=== PATIENT | male | born 1970 | race Caucasian/White ===

== ENCOUNTER → 2016-10-04 | Outpatient (CLI) | payer BC, OTHER ==
[2016-10-04 13:23] LABS: ESTIMATED AVERAGE GLUCOSE 148 mg/dl; HA1C FLAG Normal (Normal)
[2016-10-04 13:46] LABS: ALT/SGPT 33 U/L (12-78); AST/SGOT 19 U/L (15-37); BLOOD UREA NITROGEN 19 mg/dl (7-18); BUN/CREATININE RATIO 20.2 (10-20); CALCIUM 9.8 mg/dl (8.5-10.1); CARBON DIOXIDE 28 mmol/L (21-32); CHLORIDE 105 mmol/L (98-107); CREATININE 0.96 mg/dl (0.60-1.40); GLUCOSE 95 mg/dl (70-99); POTASSIUM 4.1 mmol/L (3.5-5.1); SODIUM 139 mmol/L (136-145)
[2016-10-04 13:48] LABS: ALB/GLOB RATIO 1.2 (0.9-2); ALKALINE PHOSPHATASE 77 U/L (45-117); CHOLESTEROL 126 mg/dl (0-200); CHOLESTEROL/HDL RATIO 2.9; HDL CHOLESTEROL 43 mg/dl; LDL CHOLESTEROL CALCULATED 59 mg/dl; TRIGLYCERIDES 118 mg/dl (0-150); VERY LOW DENSITY LIPOPROT CALC 24 mg/dl
== END | disposition home or self-care (01) ==
LOC: C.LABMFLN 07:09
PROVIDERS: ATTEND Family Medicine
DX: E11.9 Type 2 diabetes mellitus without complications (principal); E78.5 Hyperlipidemia, unspecified

== ENCOUNTER → 2017-02-19 | Outpatient (CLI) | payer BC, OTHER ==
[2017-02-19 12:57] LABS: BASO % 2.3 %; COMPLETE YES; EOS % 12.6 %; IG% 0.7 %; LYMPH % 22.6 %; MEAN CELL VOLUME 86.8 fL (80-100); MEAN CORPUSCULAR HGB CONC 34.6 g/dl (32-36); MEAN PLATELET VOLUME 10.3 fL (7.4-10.4); MONO % 9.3 %; NEUT % 52.5 %; PLATELET COUNT 207 K/uL (130-400); RED BLOOD COUNT 5.53 M/uL (4.7-6.1); WHITE BLOOD COUNT 4.43 K/uL (4.8-10.8)
[2017-02-19 13:32] LABS: RATIO 5.6 mcg/mg (0-30.0)
[2017-02-19 13:34] LABS: ALT/SGPT 39 U/L (12-78); AST/SGOT 23 U/L (15-37); BLOOD UREA NITROGEN 20 mg/dl (7-18); CALCIUM 9.6 mg/dl (8.5-10.1); CARBON DIOXIDE 28 mmol/L (21-32); CHLORIDE 101 mmol/L (98-107); CHOLESTEROL 86 mg/dl (0-200); CREATININE 1.07 mg/dl (0.60-1.40); GLUCOSE 99 mg/dl (70-99); SODIUM 135 mmol/L (136-145); TRIGLYCERIDES 86 mg/dl (0-150); VERY LOW DENSITY LIPOPROT CALC 17 mg/dl
[2017-02-19 13:35] LABS: ESTIMATED AVERAGE GLUCOSE 154 mg/dl; HA1C FLAG Normal (Normal)
[2017-02-19 13:46] LABS: ALB/GLOB RATIO 1.1 (0.9-2); ALKALINE PHOSPHATASE 84 U/L (45-117); CHOLESTEROL/HDL RATIO 2.2; HDL CHOLESTEROL 40 mg/dl; LDL CHOLESTEROL CALCULATED 29 mg/dl
== END | disposition home or self-care (01) ==
LOC: C.LABMFLN 07:44
PROVIDERS: ATTEND Family Medicine
DX: E11.9 Type 2 diabetes mellitus without complications (principal); E78.5 Hyperlipidemia, unspecified; C81.90 Hodgkin lymphoma, unspecified, unspecified site

== ENCOUNTER → 2017-03-16 | Outpatient (CLI) | payer BC, OTHER | END | disposition home or self-care (01) | LOC: C.LABMFLN 10:12 | PROVIDERS: ATTEND Physician Assistant | DX: J02.9 Acute pharyngitis, unspecified (principal) ==

== ENCOUNTER → 2017-09-26 | Outpatient (CLI) | payer BC, OTHER ==
[2017-09-26 13:24] LABS: HEMOGLOBIN A1C 7.6 % (4.5-5.6)
[2017-09-26 13:41] LABS: ALBUMIN 4.1 gm/dl (3.4-5.0); ALKALINE PHOSPHATASE 78 U/L (45-117); ALT/SGPT 31 U/L (12-78); AST/SGOT 21 U/L (15-37); BLOOD UREA NITROGEN 14 mg/dl (7-18); CALCIUM 9.5 mg/dl (8.5-10.1); CARBON DIOXIDE 28 mmol/L (21-32); CHOLESTEROL 88 mg/dl (0-200); CREATININE 1.01 mg/dl (0.60-1.40); GLUCOSE 117 mg/dl (70-99); LDL CHOLESTEROL CALCULATED 32 mg/dl; SODIUM 137 mmol/L (136-145); TOTAL PROTEIN 7.7 gm/dl (6.4-8.2)
== END | disposition home or self-care (01) ==
LOC: C.LABMFLN 08:31
PROVIDERS: ATTEND Family Medicine
DX: E11.9 Type 2 diabetes mellitus without complications (principal); E78.5 Hyperlipidemia, unspecified

== ENCOUNTER 2021-01-04 19:19 | Observation (INO) ==
[2021-01-04] MEDS ORDERED: SODIUM CHLORIDE 0.9% 1000ML 1,000 ML IV ONE (19:56)
[2021-01-04 20:18] LABS: Basophils # (auto) 0.02 K/uL (0-0.2); Basophils % (auto) 0.2 %; Eosinophils # (auto) 0.13 K/uL (0-0.5); Hematocrit (blood only) 42.8 % (42-52); Hemoglobin 14.8 g/dL (14.0-18.0); Immature Granulocytes # (auto) 0.03 K/uL (0.00-0.02); Immature Granulocytes % (auto) 0.2 %; Lymphocytes # (auto) 0.73 K/uL (1.2-3.4); Lymphocytes % (auto) 5.7 %; Mean Corpuscular Hgb Conc 34.6 g/dL (32-36); Mean Corpuscular Volume 86.8 fL (80-100); Mean Platelet Volume 10.5 fL (7.4-10.4); Monocytes # (auto) 1.13 K/uL (0.11-0.59); Monocytes % (auto) 8.8 %; Neutrophils # (auto) 10.83 K/uL (1.4-6.5); Neutrophils % (auto) 84.1 %; Platelet Count 252 K/uL (130-400); RDW Coefficient of Variation 13.7 % (11.5-14.5); RDW Standard Deviation 43.9 fL (36.4-46.3); Red Blood Count 4.93 M/uL (4.7-6.1); White Blood Count 12.87 K/uL (4.8-10.8)
--- NOTE | 2021-01-04 20:21 | Emergency Department Note ---
Impression & Plan Cholecystitis, D-dimer, elevated, Total bilirubin, elevated ED Provider Note Provider: Jeff Echeverria MD DATE OF SERVICE: 01/04/2021 CHIEF COMPLAINT: Upper abdominal pain, abnormal labs HISTORY OF PRESENT ILLNESS: Patient is a 50-year-old gentleman history of diabetes & hyperlipidemia presenting here today referred by his primary doctor after abnormal blood work. Patient was evidently having significant vomiting and upper abdominal discomfort in the upper abdomen seen here [address] scan that questioned a little bit of colon ?inflammation and was started on Augmentin at that time. States he has not had significant lower abdominal pain but still having some fevers and chills at times with localization of pain to the right upper quadrant. Patient states yesterday he developed some pain with deep breath particularly in the right upper quadrant and right chest wall area and saw his doctor today. Blood work was ordered. Blood work was concerning with an elevated D-dimer as well as a white blood cell count and bilirubin elevation. Was sent here for reevaluation. Patient has been taking some [place] but last early this morning and some Tylenol this evening. Patient states that he is not been eating much today but the vomiting is minimal at this time with some mild discomfort particular with touch to the right upper quadrant. Pain does state that the pain will localize more in the right upper abdomen now more than it was a day or 2 ago. REVIEW OF SYSTEMS: A total of 10 review of systems was obtained and negative except as stated above in the HPI. PAST MEDICAL HISTORY: As noted above MEDICATIONS: Reviewed home medications and currently includes Augmentin SOCIAL HISTORY: Lives at home with PHYSICAL EXAM: GENERAL: alert and oriented in no acute distress on stretcher Head: normocephalic and atraumatic EYES: No injection, discharge or icterus. NECK: Trachea midline. ENT: Mucous membranes pink and moist. LUNGS: Airway patent. No retractions. Breath sounds clear HEART: Regular rate and rhythm. No chest wall tenderness ABDOMEN: Soft with no lower abdominal tenderness or peritonitis. Right upper quadrant tenderness with a positive Ladd sign. SKIN: Acyanotic, warm, dry, without rashes EXTREMITIES: Without swelling, tenderness or deformity NEUROLOGICAL: No focal deficits. No aphasia. No facial droop or slurred speech. Ambulatory. EK bpm sinus tachycardia with left axis. No acute ST segment elevation or depression. QTC 461. CONTINUOUS CARDIAC MONITORING: was ordered and showed a heart rate of 90s to 100 bpm in normal sinus rhythm to sinus tachycardia Patient's laboratory studies and imaging reviewed. Differential includes PE, ACS, appendicitis, testicular torsion, infections, diverticulitis, UTI, obstruction, mesenteric ischemia, aortic pathology, inflammatory bowel disease, renal colic, PUD, pancreatitis, biliary pathology, hernia, volvulus, constipation, as well as other pathologies. IMPRESSION/MEDICAL DECISION MAKING: Patient now with leukocytosis continued fevers and an elevated D-dimer. Not that short of breath at rest no chest pain lower suspicion for ACS or PE but with abdominal complete a CT of the chest to exclude this. With the low white blood cell count pain in the right upper quadrant with appears to be a Ladd sign as well as an elevated bilirubin will complete a CT also through the abdomen pelvis to see if there is any signs of gallbladder distention or inflammation. Concern for possible underlying biliary pathology has is not having significant lower abdominal tenderness. Patient does not appear septic at this time. White count and bilirubin mildly improved. LFTs not severely deranged but no lipase elevation. Troponin x1 abnormal but I doubt this represents ACS. CTs per radiology without evidence of PE although did make the patient aware of the incidental pulmonary nodule being followed up on. They acknowledged this. Patient with findings on the CTs per radiology concerning for acute cholecystitis which fits clinically with his history. Discussed with general surgery who evaluate the patient and plan to admit him. Given Zosyn for antibiotic coverage at this time. Covid test was sent and negative. Patient agreeable with the plan for further care here at the hospital at this time. 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 Hyperlipidemia Malignant lymphoma, Hodgkin's type Surgical History Hx of appendectomy Family History Father Diabetes Hyperlipidemia Mother Hyperlipidemia Grandfather (Paternal) Colon cancer Social History Smoking Status: Never smoker Tobacco Type: Cigarettes Hx Alcohol Use: Yes Hx Substance Use: No Preferred Language: [place] Communication Ability: Effective Sampler Tester Required: No Beliefs That Will Affect Care: None Current Living Situation: Spouse Other Information That Helps Us Care for You: No Feels Safe at Home: Yes Safety Concerns: Feels Safe At This Time Assistive Devices: Glasses Allergies Allergies Allergy/AdvReac Type Severity Reaction Status Date / Time No Known Drug Allergies Allergy Verified 01/04/21 10:47 Home Meds Home Medications Medication Instructions Recorded Confirmed blood sugar diagnostic (OneTouch #10 ea 01/08/19 01/04/21 Ultra Blue Test Strip) cetirizine 10 mg tablet 10 mg PO HS tab 01/08/19 01/04/21 lancets 33 gauge (OneTouch Delica #100 ea 01/08/19 01/04/21 Lancets) atorvastatin 20 mg tablet 20 mg PO HS 01/02/21 01/04/21 Previous Rx's Medication Instructions Recorded albuterol sulfate 90 mcg/actuation 2 puffs INH Q4H PRN #2 puffs 10/24/18 aerosol inhaler (Ventolin HFA) blood sugar diagnostic (OneTouch #50 ea 12/11/18 Verio test strips) glimepiride 2 mg tablet 2 mg PO TID #270 tab 05/21/20 semaglutide 1 mg/dose (2 mg/1.5 1 mg SQ WEEKLY 30 Days #3 ml 05/24/20 mL) subcutaneous pen injector (Ozempic) metformin 1,000 mg tablet 1,000 mg PO BID #60 tab 08/23/20 empagliflozin 25 mg tablet 25 mg PO QAM #30 tab 09/21/20 (Jardiance) amoxicillin 875 mg-potassium 1 tab PO BID 10 Days #20 tab 01/02/21 clavulanate 125 mg tablet (Augmentin) esomeprazole magnesium 40 mg 40 mg PO DAILY #30 cap 01/04/21 capsule,delayed release hydrocodone 5 mg-acetaminophen 325 1 tab PO Q6H PRN #30 tab 01/04/21 mg tablet Results & Data (ED) Vital Signs Vital Signs - 24 hr 01/04/21 19:22 01/04/21 21:38 01/04/21 22:33 Temperature 36.0 C L 36.8 C Temperature Source Temporal Artery Scan Oral Pulse Rate 108 H Pulse Rate [Apical] 98 H 106 H Respiratory Rate 20 16 21 Blood Pressure 112/70 Blood Pressure [Right Arm] 129/81 139/77 Blood Pressure Mean 84 Blood Pressure Mean [Right Arm] 97 97 Pulse Oximetry 98 98 96 Oxygen Delivery Method Room Air Room Air Room Air Sepsis Recent Fever Within 48 Hours No Sepsis New/Unexplained Change in Mental Status No Sepsis Action Taken by Nursing No Action Required Laboratory Data Result diagrams: 01/04/21 19:40 01/04/21 19:40 Lab Results 01/04/21 01/04/21 01/04/21 Range/Units 19:40 19:40 19:47 WBC 12.87 H (4.8-10.8) K/uL RBC 4.93 (4.7-6.1) M/uL Hgb 14.8 (14.0-18.0) g/dL Hct 42.8 (42-52) % MCV 86.8 (80-100) fL MCH 30.0 (25-34) pg MCHC 34.6 (32-36) g/dL RDW Std Deviation 43.9 (36.4-46.3) fL RDW Coeff of Kuldip 13.7 (11.5-14.5) % Plt Count 252 (130-400) K/uL MPV 10.5 H (7.4-10.4) fL Immature Gran % (Auto) 0.2 % Neut % (Auto) 84.1 % Lymph % (Auto) 5.7 % [place] % (Auto) 8.8 % Eos % (Auto) 1.0 % Baso % (Auto) 0.2 % Neut # (Auto) 10.83 H (1.4-6.5) K/uL Lymph # (Auto) 0.73 L (1.2-3.4) K/uL [place] # (Auto) 1.13 H (0.11-0.59) K/uL Eos # (Auto) 0.13 (0-0.5) K/uL Baso # (Auto) 0.02 (0-0.2) K/uL Immature Gran # (Auto) 0.03 H (0.00-0.02) K/uL Sodium 134 L (136-145) mmol/L Potassium 3.9 (3.5-5.1) mmol/L Chloride 106 (98-107) mmol/L Carbon Dioxide 15 L (21-32) mmol/L Anion Gap 13.0 H (3-11) BUN 17 (7-18) mg/dl Creatinine 1.12 (0.6-1.4) mg/dl Est Cr Clr Drug Dosing 101.4 ml/min Est GFR ( Amer) 88.3 ml/min Est GFR (Non-Af Amer) 76.2 ml/min BUN/Creatinine Ratio 15.4 (10-20) Glucose 239 H (70-99) mg/dl Calcium 8.9 (8.5-10.1) mg/dl Total Bilirubin 3.1 H (0.2-1) mg/dl AST 34 (15-37) U/L ALT 68 (12-78) U/L Alkaline Phosphatase 103 (45-117) U/L Troponin I 0.044 (0-0.045) ng/ml Total Protein 7.5 (6.4-8.2) gm/dl Albumin 3.0 L (3.4-5.0) gm/dl Globulin 4.5 H (2.5-4.0) gm/dl Albumin/Globulin Ratio 0.7 L (0.9-2) Lipase 159 (73-393) U/L Specimen Hemolysis COVID-19 Eval Order Covid19 at [facility] SARS-CoV-2 (PCR) (Negative) 01/04/21 Range/Units 19:47 WBC (4.8-10.8) K/uL RBC (4.7-6.1) M/uL Hgb (14.0-18.0) g/dL Hct (42-52) % MCV (80-100) fL MCH (25-34) pg MCHC (32-36) g/dL RDW Std Deviation (36.4-46.3) fL RDW Coeff of Kuldip (11.5-14.5) % Plt Count (130-400) K/uL MPV (7.4-10.4) fL Immature Gran % (Auto) % Neut % (Auto) % Lymph % (Auto) % [place] % (Auto) % Eos % (Auto) % Baso % (Auto) % Neut # (Auto) (1.4-6.5) K/uL Lymph # (Auto) (1.2-3.4) K/uL [place] # (Auto) (0.11-0.59) K/uL Eos # (Auto) (0-0.5) K/uL Baso # (Auto) (0-0.2) K/uL Immature Gran # (Auto) (0.00-0.02) K/uL Sodium (136-145) mmol/L Potassium (3.5-5.1) mmol/L Chloride (98-107) mmol/L Carbon Dioxide (21-32) mmol/L Anion Gap (3-11) BUN (7-18) mg/dl Creatinine (0.6-1.4) mg/dl Est Cr Clr Drug Dosing ml/min Est GFR ( Amer) ml/min Est GFR (Non-Af Amer) ml/min BUN/Creatinine Ratio (10-20) Glucose (70-99) mg/dl Calcium (8.5-10.1) mg/dl Total Bilirubin (0.2-1) mg/dl AST (15-37) U/L ALT (12-78) U/L Alkaline Phosphatase (45-117) U/L Troponin I (0-0.045) ng/ml Total Protein (6.4-8.2) gm/dl Albumin (3.4-5.0) gm/dl Globulin (2.5-4.0) gm/dl Albumin/Globulin Ratio (0.9-2) Lipase (73-393) U/L Specimen Hemolysis COVID-19 Eval Order SARS-CoV-2 (PCR) NEGATIVE (Negative) Administered Medications Discontinued Medications Sodium Chloride (Nss 1000ml) 1,000 mls @ 999 mls/hr IV .Q1H1M ONE Stop: 01/04/21 20:56 Last Infusion: 01/04/21 21:13 Dose: 0 mls/hr Documented by: [id number] Admin: 01/04/21 20:11 Dose: 999 mls/hr Documented by: [id number] Piperacillin Sod/Tazobactam Sod (Zosyn) 4.5 gm in 120 mls @ 240 mls/hr IV NOW ONE Stop: 01/04/21 22:09 Last Infusion: 01/04/21 22:27 Dose: 0 mls/hr Documented by: [id number] Admin: 01/04/21 21:47 Dose: 240 mls/hr Documented by: [id number] Ioversol (Optiray 320 125ml) 120 ml IV ONCE ONE Stop: 01/04/21 20:28 Last Admin: 01/04/21 20:32 Dose: 120 ml Documented by: [id number] Imaging Data Radiologist's Impression: Abdomen/Pelvis CT 01/04/21 19:45 CT angio chest PE protocol, CT abd pelvis IV con only CT DOSE: 1736.19 mGy.cm HISTORY: 50 years-old Male with PE, +dimer, SOB, upper abd pain. Acute shortness of breath with elevated d-dimer and upper abdominal pain TECHNIQUE: Multiple CTA images of the chest were obtained after the intravenous administration of [address] abdomen pelvis with IV contrast only was also obtained. Coronal and sagittal MIPS were obtained from the axial data set and were submitted for review. All measurements were obtained according to NASCET criteria. A dose lowering technique was utilized adhering to the principles of ALARA. COMPARISON: CT abdomen and pelvis 01/02/2021 FINDINGS: CTA: The heart is normal in size without pericardial effusion. Moderate coronary artery calcifications. No thoracic aortic aneurysm or dissection. Unremarkable pulmonary artery. No pulmonary emboli. CT CHEST: No thyroid nodule or adenopathy. Trace pleural effusions. No pneumothorax or overt pulmonary edema. Linear subsegmental atelectasis. 10 mm nodular density of the basal left lower lobe on image 64 series 4 is unchanged in comparison. 4 mm solid nodule of the right middle lobe on image 149. Central airways are patent. Soft tissues. No acute fracture. CT ABDOMEN/PELVIS: No pneumatosis or pneumoperitoneum. The spleen is enlarged measuring 15.4 cm in length. Unremarkable pancreas and adrenal glands. Gallbladder wall thickening with pericholecystic fluid and inflammatory stranding. Probable cholelithiasis in the gallbladder neck versus proximal cystic duct. No biliary ductal dilation. Mildly enlarged periportal/pericaval lymph nodes measure up to 1.4 cm. Unremarkable liver. Patent portal vein. Unremarkable kidneys. Prostamegaly. Mild urinary bladder wall thickening with partial distention. Atherosclerosis of the aorta. Prominent nonenlarged retroperitoneal lymph nodes redemonstrated. Small fat filled inguinal hernias. Mild wall thickening of the duodenum with periduodenal stranding. Moderate fecal retention. There is a focus of prior epiploic appendagitis adjacent to the sigmoid colon measuring 1.6 cm. Nonvisualization of the appendix. Tiny fat filled periumbilical hernia, diastases of 1.7 cm. There is no acute fracture. Probable bone island of the proximal right femur. IMPRESSION: 1. Findings compatible with acute cholecystitis with probable gallstone within the gallbladder neck versus proximal cystic duct. 2. Wall thickening of the duodenum is likely reactive. 3. No acute intrathoracic abnormality. 4. No pulmonary emboli. 5. 9 mm nodule of the basal left lower lobe with 4 mm solid nodule of the right middle lobe. 3 month follow-up chest CT recommended. ACT 112: Negative or not required by law. The above report was generated using voice recognition software. It may contain grammatical, syntax or spelling errors. Electronically signed by: Aditya Alvarado M.D. 01/04/2021 8:56 PM Chest CTA 01/04/21 19:45 CT angio chest PE protocol, CT abd pelvis IV con only CT DOSE: 1736.19 mGy.cm HISTORY: 50 years-old Male with PE, +dimer, SOB, upper abd pain. Acute shortness of breath with elevated d-dimer and upper abdominal pain TECHNIQUE: Multiple CTA images of the chest were obtained after the intravenous administration of [address] abdomen pelvis with IV contrast only was also obtained. Coronal and sagittal MIPS were obtained from the axial data set a nd were submitted for review. All measurements were obtained according to NASCET criteria. A dose lowering technique was utilized adhering to the principles of ALARA. COMPARISON: CT abdomen and pelvis 01/02/2021 FINDINGS: CTA: The heart is normal in size without pericardial effusion. Moderate coronary art lori calcifications. No thoracic aortic aneurysm or dissection. Unremarkable pulmonary artery. No pulmonary emboli. CT CHEST: No thyroid nodule or adenopathy. Trace pleural effusions. No pneumothorax or overt pulmonary edema. Linear subsegmental atelectasis. 10 mm nodular density of the basal left lower lobe on image 64 series 4 is unchanged in comparison. 4 mm solid nodule of the right middle lobe on image 149. Central airways are patent. Soft tissues. No acute fracture. CT ABDOMEN/PELVIS: No pneumatosis or pneumoperitoneum. The spleen is enlarged measuring 15.4 cm in length. Unremarkable pancreas and adrenal glands. Gallbladder wall thickening with pericholecystic fluid and inflammatory stranding. Probable cholelithiasis in the gallbladder neck versus proximal cystic duct. No biliary ductal dilation. Mildly enlarged periportal/pericaval lymph nodes measure up to 1.4 cm. Unremarkable liver. Patent portal vein. Unremarkable kidneys. Prostamegaly. Mild urinary bladder wall thickening with partial distention. Atherosclerosis of the aorta. Prominent nonenlarged retroperitoneal lymph nodes redemonstrated. Small fat filled inguinal hernias. Mild wall thickening of the duodenum with periduodenal stranding. Moderate fecal retention. There is a focus of prior epiploic appendagitis adjacent to the sigmoid colon measuring 1.6 cm. Nonvisualization of the appendix. Tiny fat filled periumbilical hernia, diastases of 1.7 cm. There is no acute fracture. Probable bone island of the proximal right femur. IMPRESSION: 1. Findings compatible with acute cholecystitis with probable gallstone within the gallbladder neck versus proximal cystic duct. 2. Wall thickening of the duodenum is likely reactive. 3. No acute intrathoracic abnormality. 4. No pulmonary emboli. 5. 9 mm nodule of the basal left lower lobe with 4 mm solid nodule of the right middle lobe. 3 month follow-up chest CT recommended. ACT 112: Negative or not required by law. The above report was generated using voice recognition software. It may contain grammatical, syntax or spelling errors. Electronically signed by: Aditya Alvarado M.D. 01/04/2021 8:56 PM Discharge Plan Visit Data Chief Complaint: Abnormal Labs/Diagnostic Testing Stated Complaint: ab pain, ab normal labs dr sandra ED Provider: Jeff Echeverria Discharge Problem: Cholecystitis, D-dimer, elevated, Total bilirubin, elevated Patient Disposition: Being Evaluated by Surgeon Forms Stand Alone Forms: [facility] [employer] Prescriptions Prescriptions: No Action albuterol sulfate [Ventolin HFA] 90 mcg/actuation HFA aerosol inhaler 2 puffs INH Q4H PRN (Reason: shortness of breath or wheezing) Qty: 2 RF: 3 (DME) [employer] Verio test strips strip See Dose Instructions .ROUTE .MEDSUPPLY Qty: 50 RF: 3 Ozempic 1 mg/dose (2 mg/1.5 mL) pen injector 1 mg SQ WEEKLY 30 Days Qty: 3 RF: 11 metformin 1,000 mg tablet 1,000 mg PO BID Qty: 60 RF: 5 Jardiance 25 mg tablet 25 mg PO QAM Qty: 30 RF: 5 hydrocodone-acetaminophen 5-325 mg tablet 1 tab PO Q6H PRN (Reason: pain) Qty: 30 RF: 0 esomeprazole magnesium 40 mg capsule,delayed release(DR/EC) 40 mg PO DAILY Qty: 30 RF: 2 (DME) lancets [OneTouch Delica Lancets] 33 gauge misc See Dose Instructions .ROUTE .MEDSUPPLY Qty: 100 RF: 0 (DME) OneTouch Ultra Blue Test Strip strip See Dose Instructions .ROUTE .MEDSUPPLY Qty: 10 RF: 0 cetirizine 10 mg tablet 10 mg PO HS RF: 0 glimepiride 2 mg tablet 2 mg PO TID Qty: 270 RF: 3 atorvastatin 20 mg tablet 20 mg PO HS RF: 0 amoxicillin-pot clavulanate [Augmentin] 875-125 mg tablet 1 tab PO BID 10 Days Qty: 20 RF: 0 Referrals Referrals: Sandro Rosen MD [Primary Care Provider] -
[2021-01-04 20:25] LABS: BUN Creatinine Ratio 15.4 (10-20); Calcium 8.9 mg/dl (8.5-10.1); Creatinine Clr Calc Pharmacy 101.4 ml/min; Est GFR (African American) 88.3 ml/min; Est GFR (Non-African American) 76.2 ml/min; Potassium 3.9 mmol/L (3.5-5.1)
[2021-01-04] MEDS ORDERED: OPTIRAY 320 125ml IV ONE (20:27)
[2021-01-04 20:30] LABS: Albumin Globulin Ratio 0.7 (0.9-2); Bilirubin,Total 3.1 mg/dl (0.2-1); Globulin 4.5 gm/dl (2.5-4.0); Total Protein 7.5 gm/dl (6.4-8.2); Troponin I 0.044 ng/ml (0-0.045)
--- NOTE | 2021-01-04 20:57 | CT Scan Report ---
CT angio chest PE protocol, CT abd pelvis IV con only CT DOSE: 1736.19 mGy.cm HISTORY: 50 years-old Male with PE, +dimer, SOB, upper abd pain. Acute shortness of breath with keya vated d-dimer and upper abdominal pain TECHNIQUE: Multiple CTA images of the chest were obtained after the intravenous administration of [address] abdomen pelvis with IV contrast only was also obtained. Coronal and sagittal MIPS wer e obtained from the axial data set and were submitted for review. All measurements were obtained acc ording to NASCET criteria. A dose lowering technique was utilized adhering to the principles of ALARA . COMPARISON: CT abdomen and pelvis 01/02/2021 FINDINGS: CTA: The heart is normal in size without pericardial effusion. Moderate coronary artery calcifications. No thoracic aortic aneurysm or dissection. Unremarkable pulmonary artery. No pulmonary emboli. CT CHEST: No thyroid nodule or adenopathy. Trace pleural effusions. No pneumothorax or overt pulmonary edema. L inear subsegmental atelectasis. 10 mm nodular density of the basal left lower lobe on image 64 series 4 is unchanged in comparison. 4 mm solid nodule of the right middle lobe on image 149. Central airwa ys are patent. Soft tissues. No acute fracture. CT ABDOMEN/PELVIS: No pneumatosis or pneumoperitoneum. The spleen is enlarged measuring 15.4 cm in length. Unremarkable pancreas and adrenal glands. Gallbladder wall thickening with pericholecystic fluid and inflammatory stranding. Probable cholelithiasis in the gallbladder neck versus proximal cystic duct. No biliary du ctal dilation. Mildly enlarged periportal/pericaval lymph nodes measure up to 1.4 cm. Unremarkable li grecia. Patent portal vein. Unremarkable kidneys. Prostamegaly. Mild urinary bladder wall thickening with partial distention. Ath erosclerosis of the aorta. Prominent nonenlarged retroperitoneal lymph nodes redemonstrated. Small fa t filled inguinal hernias. Mild wall thickening of the duodenum with periduodenal stranding. Moderate fecal retention. There is a focus of prior epiploic appendagitis adjacent to the sigmoid colon measu ring 1.6 cm. Nonvisualization of the appendix. Tiny fat filled periumbilical hernia, diastases of 1.7 cm. There is no acute fracture. Probable bone island of the proximal right femur. IMPRESSION: 1. Findings compatible with acute cholecystitis with probable gallstone within the gallbladder neck v ersus proximal cystic duct. 2. Wall thickening of the duodenum is likely reactive. 3. No acute intrathoracic abnormality. 4. No pulmonary emboli. 5. 9 mm nodule of the basal left lower lobe with 4 mm solid nodule of the right middle lobe. 3 month follow-up chest CT recommended. ACT 112: Negative or not required by law. The above report was generated using voice recognition software. It may contain grammatical, syntax o r spelling errors. Electronically signed by: Aditya Alvarado M.D. 01/04/2021 8:56 PM
[2021-01-04] MEDS ORDERED: PIPERACILL/TAZOBAC CONSULT ACTIVE PRN ×2 (21:40→23:45)
[2021-01-04] MEDS ORDERED: PIPERACILLIN/TAZOBACTAM 4.5 GM/120 ML BAG IV ONE (21:40)
--- NOTE | 2021-01-04 22:07 | History & Physical Report ---
Date of Service January 04, 2021 Assessment & Plan (1) Cholecystitis: Plan: Patient will be admitted to the hospital and the surgical service and we proceed as follows: Provide analgesics Provide antiemetics Continue antibiotics in the form of Zosyn Keep n.p.o. IV fluid for hydration We will plan on proceeding with a laparoscopic cholecystectomy with probable intraoperative cholangiogram tomorrow. Dr. Smith will further discuss the surgery with the patient We will use SCDs for DVT prevention no chemical means due to planned surgery We will place patient on sliding scale insulin and follow BSG's every 6 hours while n.p.o. We will also asked the hospitalist to help assist with his diabetes management. Patient be a level 1 full code History of Present Illness Chief Complaint: Abdominal pain Primary Care Provider: Sandro Rosen MD This is a 50-year-old male who presented to the emergency department tonight secondary to ongoing abdominal pain. Patient was seen in the emergency department on 01/02/2021. On this date the patient underwent a CT scan abdomen and pelvis that showed some inflammation around the sigmoid colon. The patient was discharged home on oral Augmentin due to concerns for developing diverticulitis. Patient notes he was initially doing well at home but he continues to have right upper quadrant abdominal pain that seems to be worse after he eats. He has had chills as well as fevers as high as 101 as well. He denies any other modifying factors to his pain he notes the pain does not radiate. Patient said he saw his primary care physician earlier today where patient had blood work and he was noted to have an elevated D-dimer. Because of this and his ongoing symptoms he represented to the emergency department. Today in the emergency department the patient underwent a CT scan of the chest that was negative for pulmonary emboli. He had a CT scan of the abdomen and pelvis which showed findings compatible with a acute cholecystitis with probable gallstones in the gallbladder neck. Labs include a CBC her white blood cell count was elevated 12.8. His hemoglobin and hematocrit were both normal. Platelet count was noted to be normal. His sodium was noted to be 134. Potassium, BUN, and creatinine were all normal. Patient had LFTs performed where his bilirubin is elevated at 3.1. His transaminases and alkaline phosphatase as well as his lipase were normal. A Covid test was performed and was noted to be negative. In addition the patient had an EKG that showed no signs of acute ischemic changes. I did question the patient on his activities daily living. The patient says that he walks in excess of 1 mile 6 days/week. He says with his ambulation he walks on flat surfaces and inclines and he does not get chest pain or shortness of breath with these activities. At the time of interview the patient was resting comfortably in bed he was in no distress. Allergies Allergy/AdvReac Type Severity Reaction Status Date / Time No Known Drug Allergies Allergy Verified 01/04/21 10:47 Home Medications Medication Instructions Recorded Confirmed Type albuterol sulfate 90 mcg/actuation 2 puffs INH Q4H PRN #2 puffs 10/24/18 01/04/21 Rx aerosol inhaler (Ventolin HFA) blood sugar diagnostic (OneTouch #50 ea 12/11/18 01/04/21 Rx Verio test strips) blood sugar diagnostic (OneTouch #10 ea 01/08/19 01/04/21 History Ultra Blue Test Strip) cetirizine 10 mg tablet 10 mg PO HS tab 01/08/19 01/04/21 History lancets 33 gauge (OneTouch Delica #100 ea 01/08/19 01/04/21 History Lancets) glimepiride 2 mg tablet 2 mg PO TID #270 tab 05/21/20 01/04/21 Rx semaglutide 1 mg/dose (2 mg/1.5 1 mg SQ WEEKLY 30 Days #3 ml 05/24/20 01/04/21 Rx mL) subcutaneous pen injector (Ozempic) metformin 1,000 mg tablet 1,000 mg PO BID #60 tab 08/23/20 01/04/21 Rx empagliflozin 25 mg tablet 25 mg PO QAM #30 tab 09/21/20 01/04/21 Rx (Jardiance) amoxicillin 875 mg-potassium 1 tab PO BID 10 Days #20 tab 01/02/21 01/04/21 Rx clavulanate 125 mg tablet (Augmentin) atorvastatin 20 mg tablet 20 mg PO HS 01/02/21 01/04/21 History esomeprazole magnesium 40 mg 40 mg PO DAILY #30 cap 01/04/21 01/04/21 Rx capsule,delayed release hydrocodone 5 mg-acetaminophen 325 1 tab PO Q6H PRN #30 tab 01/04/21 01/04/21 Rx mg tablet Past Med/Surg History Medical History Abnormal CT scan, colon Allergic rhinitis Asthma, mild intermittent 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 Hyperlipidemia Malignant lymphoma, Hodgkin's type Surgical History Hx of appendectomy Family History Father Diabetes Hyperlipidemia Mother Hyperlipidemia Grandfather (Paternal) Colon cancer Social History Smoking Status: Never smoker Tobacco Type: Cigarettes Hx Alcohol Use: Yes Hx Substance Use: No Feels Safe at Home: Yes Review of Systems Constitutional: + fever, + chills and + sweats Eyes: no diplopia Ear, Nose, Mouth, Throat: no ear pain and no sore throat Respiratory: no cough and no dyspnea Cardiovascular: no chest pain Gastrointestinal: + abdominal pain, + nausea and + vomiting Genitourinary: no dysuria Integumentary: no rash Neurologic: no generalized weakness Physical Exam Constitutional: well developed and well nourished; no acute distress Eyes: no conjunctival abnormality ENMT: Ears: no hearing impairment and no external ear abnormality Mouth: no oropharynx abnormality Neck: trachea midline Respiratory: normal respiratory effort, lungs clear to auscultation Cardiovascular: RRR, no murmur, no edema Gastrointestinal (Abdomen): Abdomen is soft nondistended positive bowel sounds. Patient had pain with palpation in the right upper quadrant with a positive Ladd sign Musculoskeletal: No calf tenderness Skin: no rashes Neurologic: moves all extremities Psychiatric: A+Ox3, euthymic affect Results & Data Results & Data ([facility]) Vital Signs (Past 12 Hours) Vital Signs Temp Pulse Resp BP Pulse Ox 01/04/21 19:22 36.0 C L 108 H 20 112/70 98 Code Status & VTE Plan VTE Prophylaxis Plan VTE Prophylaxis will be ordered: Yes Supervising Physician Co-Signing Physician Notes As per Dima Lee physician restaurant assistant manager Recent CAT scan confirms clinical finding of acute cholecystitis with tenderness in the right upper quadrant The patient stated he had some wings the other night and may have triggered such a problem he had no prior history of gallbladder dysfunction and no family history Patient did note that his urine was slightly dark orange Clinically the sclera slightly injected he does have a bilirubin slightly elevated with rest liver enzymes normal At this point will admit the patient on IV antibiotics and plan to proceed with laparoscopic cholecystectomy cholangiogram possible open in the morning risk and complication explained to patient including bleeding infection injury to other organs and also in case cholangiogram may show common bile duct stone that may need to have a postoperative ERCP All questions were answered including anticipated recovery time significant other was present PG Care Time/CCT Total # of Minutes Spent Total Time Spent with Patient: Total time spent is greater than 50% in coordination of care (as documented) at patient's floor/unit and/or counseling patient: Coding Level of Care Code INT OBSERVATION CARE 70M LVL 3 Diagnoses Cholecystitis K81.9
[2021-01-04] MEDS: LACTATED RINGER'S 1,000 ML IV SCH (22:43)
[2021-01-04] MEDS ORDERED: MoRPHine SULFATE 2 MG/ML CARP IV PRN (23:45)
[2021-01-04] MEDS ORDERED: ALBUTEROL HFA 8 GM INHALER INH PRN (23:45)
[2021-01-04] MEDS ORDERED: ONDANSETRON INJ 2 MG/ML 2 ML VIAL IV PRN (23:45)
[2021-01-05] MEDS ORDERED: CARBOHYDRATES FOR HYPOGLYCEMIA PO PRN (00:30)
[2021-01-05] MEDS ORDERED: DEXTROSE 50% 50 ML SYRINGE IV PRN (00:30)
[2021-01-05] MEDS ORDERED: GLUCAGON FOR INJ 1 MG VIAL IM PRN (00:30)
[2021-01-05] MEDS ORDERED: GLUCOSE 10 TABS/TUBE PO PRN (00:30)
[2021-01-05] MEDS ORDERED: GLUCOSE 40% GEL 15 GM TUBE PO PRN (00:30)
[2021-01-05] MEDS: ACETAMINOPHEN 1,000 MG/100 ML VIAL IV PRN ×2 (00:52→14:54)
[2021-01-05] MEDS: PIPERACILLIN/TAZOBACTAM 3.375 GM in DEXTROSE 5% 100 ML IV SCH ×3 (04:14→17:05)
[2021-01-05] MEDS: INSULIN ASPART 100 UNITS/ML 3 ML PEN SC SCH ×4 (06:04→20:50)
[2021-01-05] MEDS: PANTOprazole 40 MG TAB PO SCH (07:38)
[2021-01-05 07:46] LABS: Albumin Level 2.8 gm/dl (3.4-5.0); Bilirubin Direct 0.7 mg/dl (0-0.2); Bilirubin,Total 2.7 mg/dl (0.2-1); Total Protein 7.1 gm/dl (6.4-8.2)
--- NOTE | 2021-01-05 07:53 | Surgery Progress Note ---
Date of Service January 05, 2021 Assessment & Plan (1) Cholecystitis: Plan: Patient will be admitted to the hospital and the surgical service and we proceed as follows: Provide analgesics Provide antiemetics Continue antibiotics in the form of Zosyn Keep n.p.o. IV fluid for hydration We will plan on proceeding with a laparoscopic cholecystectomy with probable intraoperative cholangiogram tomorrow. Dr. Smith will further discuss the surgery with the patient We will use SCDs for DVT prevention no chemical means due to planned surgery We will place patient on sliding scale insulin and follow BSG's every 6 hours while n.p.o. We will also asked the hospitalist to help assist with his diabetes management. Patient be a level 1 full code Plan: We will proceed with laparoscopic cholecystectomy cholangiogram We will provide with SCD preoperatively Liver enzymes were reevaluated this morning Vitals noted with elevated temperature and elevated heart rate Again the procedure was explained to the patient has laparoscopic cholecystectomy cholangiogram possible open the permit was signed Admission and Anticipated Discharge Date Admission Date: January 04, 2021 Subjective Continues to have some discomfort towards the right upper quadrant Physical Exam Physical Exam: Alert coherent appears comfortable laying in bed denies chills or nausea Gastrointestinal (Abdomen): The abdomen is soft but has more right upper quadrant tenderness and developing a Ladd sign Results & Data ([facility]) Vital Signs (Past 12 Hours) Vital Signs Temp Pulse Pulse Resp BP Pulse Ox 01/05/21 07:35 37.7 C H 120 H 20 115/68 93 01/05/21 06:33 37.6 C H 01/05/21 01:36 37.6 C 01/05/21 00:45 38.2 C H 01/04/21 23:26 36.6 C 109 H 16 149/83 H 97 01/04/21 23:00 106 H 18 143/81 H 99 01/04/21 22:33 36.8 C 106 H 21 139/77 96 01/04/21 21:38 98 H 16 129/81 98 Laboratory Results Noted PG Care Time/CCT Total # of Minutes Spent Total Time Spent with Patient: Total time spent is greater than 50% in coordination of care (as documented) at patient's floor/unit and/or counseling patient: Coding Level of Care Code 99551 Subseq Hosp Care Lvl 2 Diagnoses Cholecystitis K81.9
[2021-01-05] MEDS ORDERED: Influenza Vaccine (Fluarix) 0.5 ML SYR (Standard Dose) IM ONE (08:00)
[2021-01-05] MEDS ORDERED: PROPOFOL IV EMULSION 10 MG/ML 20 ML VIAL IV ONE ×2 (08:11→10:25)
[2021-01-05] MEDS ORDERED: ONDANSETRON INJ 2 MG/ML 2 ML VIAL ONE (08:11)
[2021-01-05] MEDS ORDERED: GLYCOPYRROLATE 0.2 MG/ML VIAL ONE (08:11)
[2021-01-05] MEDS ORDERED: NEOSTIGMINE METHYLSULFATE 1 MG/ML 10ML VIAL ONE (08:11)
[2021-01-05] MEDS ORDERED: LIDOCAINE 2% 2 ML VIAL/AMP(20MG/ML) INFIL ONE (08:11)
[2021-01-05] MEDS ORDERED: fentaNYL citrate 100 MCG/2 ML VIAL ONE ×3 (08:12→10:56)
[2021-01-05] MEDS ORDERED: MIDAZOLAM HCL 1 MG/ML 2ML VIAL ONE (08:12)
[2021-01-05] MEDS ORDERED: MEPERIDINE HCL 25 MG/ML CARP/VIAL IV PRN (08:25)
[2021-01-05] MEDS ORDERED: PHENYLEPHRINE 100MCG/ML 5ML SYR IV PRN (08:25)
[2021-01-05] MEDS ORDERED: ATROPINE SULFATE 0.1 MG/ML 10ML SYR IV PRN (08:25)
[2021-01-05] MEDS ORDERED: LABETALOL HCL IV 5 MG/ML 20ML IV PRN (08:25)
[2021-01-05] MEDS ORDERED: ePHEDrine sulfate 50 MG/ML AMP IV PRN (08:25)
[2021-01-05] MEDS ORDERED: fentaNYL citrate 100 MCG/2 ML VIAL IV PRN (08:25)
[2021-01-05] MEDS ORDERED: ONDANSETRON INJ 2 MG/ML 2 ML VIAL IV PRN (08:25)
--- NOTE | 2021-01-05 08:27 | Anesthesiology Consultation ---
Date of Service January 05, 2021 Assessment & Plan Chart Review Chart Review: Acceptable Risk for Surgery and Patient NOT seen in Pre Admission Testing Consults Requested none History Surgery Operation Date: 01/05/21 11:30 Proposed Procedures p Laparoscopic Cholecystectomy with Cholangiogram - Gerardo Smith MD, FACS Height/Weight Height: 6 ft Weight: 110.8 kg Allergies Allergy/AdvReac Type Severity Reaction Status Date / Time No Known Drug Allergies Allergy Verified 01/04/21 10:47 Medications Home Medications Medication Instructions Recorded Confirmed Last Taken albuterol sulfate 90 mcg/actuation 2 puffs INH Q4H PRN #2 puffs 10/24/18 01/04/21 Unknown aerosol inhaler (Ventolin HFA) blood sugar diagnostic (OneTouch #50 ea 12/11/18 01/04/21 Unknown Verio test strips) blood sugar diagnostic (OneTouch #10 ea 01/08/19 01/04/21 Unknown Ultra Blue Test Strip) cetirizine 10 mg tablet 10 mg PO HS tab 01/08/19 01/04/21 01/03/21 lancets 33 gauge (OneTouch Delica #100 ea 01/08/19 01/04/21 Unknown Lancets) glimepiride 2 mg tablet 2 mg PO TID #270 tab 05/21/20 01/04/21 01/04/21 semaglutide 1 mg/dose (2 mg/1.5 1 mg SQ WEEKLY 30 Days #3 ml 05/24/20 01/04/21 01/03/21 mL) subcutaneous pen injector (Ozempic) metformin 1,000 mg tablet 1,000 mg PO BID #60 tab 08/23/20 01/04/21 01/04/21 empagliflozin 25 mg tablet 25 mg PO QAM #30 tab 09/21/20 01/04/21 01/04/21 (Jardiance) amoxicillin 875 mg-potassium 1 tab PO BID 10 Days #20 tab 01/02/21 01/04/21 01/04/21 clavulanate 125 mg tablet (Augmentin) atorvastatin 20 mg tablet 20 mg PO HS 01/02/21 01/04/21 01/03/21 esomeprazole magnesium 40 mg 40 mg PO DAILY #30 cap 01/04/21 01/04/21 01/04/21 capsule,delayed release hydrocodone 5 mg-acetaminophen 325 1 tab PO Q6H PRN #30 tab 01/04/21 01/04/21 Unknown mg tablet Active Medications Generic Name Dose Route Start Last Admin Trade Name Filippo PRN Reason Stop Dose Admin Lactated Ringer's 1,000 mls @ 80 mls/hr 01/04/21 21:45 01/05/21 07:38 Lr IV 02/03/21 21:44 0 mls/hr .[id number] FEROZ Infusion Piperacillin Sod/Tazobactam 115 mls @ 28.75 mls/hr 01/05/21 02:00 01/05/21 07:39 Sod 3.375 gm/ Dextrose IV 01/15/21 01:59 Infused Q8H FEROZ Infusion Protocol Acetaminophen 1,000 mg in 100 mls @ 400 mls/hr 01/04/21 23:45 01/05/21 01:08 Ofirmev IV 01/07/21 23:44 Infused Q8H PRN Infusion Pain Insulin Aspart 0 units 01/05/21 06:00 01/05/21 06:04 Insulin Aspart 100 Units/Ml 3 Ml Pen SC 02/04/21 05:59 Not Given Q6 FEROZ Pantoprazole Sodium 40 mg 01/05/21 09:00 01/05/21 07:38 Pantoprazole 40 Mg Tab PO 02/04/21 08:59 Not Given DAILY FEROZ NPO Date Last Intake of Fluids: 01/04/21 Time Last Intake of Fluids: 23:30 Date Last Intake of Solids: 01/04/21 Time Last Intake of Solids: 17:30 Past Medical History Medical History Abnormal CT scan, colon Allergic rhinitis Asthma, mild intermittent 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 Gastroesophageal reflux disease Hyperlipidemia Malignant lymphoma, Hodgkin's type Obesity Past Family History Family History Father Diabetes Hyperlipidemia Mother Hyperlipidemia Grandfather (Paternal) Colon cancer Past Surgical History Surgical History Hx of appendectomy Social History Smoking Status: Never smoker Hx Alcohol Use: Yes alcohol intake frequency: holidays/special occasions only Hx Substance Use: No Physical Exam Vital Signs Last Vital Signs Temp 37.7 C H 01/05/21 07:55 Pulse 119 H 01/05/21 07:55 Resp 20 01/05/21 07:55 BP 138/86 01/05/21 07:55 Pulse Ox 94 01/05/21 07:55 Testing Laboratory Results 01/04/21 19:40 01/04/21 19:40 01/05/21 01/05/21 06:01 00:40 POC Glucose 105 H 107 H Electrocardiogram Date: 01/04/21 Findings: + NSST changes and + ST @ (101) left axis deviation Other Testing CT angio chest PE protocol, CT abd pelvis IV con only CT DOSE: 1736.19 mGy.cm HISTORY: 50 years-old Male with PE, +dimer, SOB, upper abd pain. Acute shortness of breath with elevated d-dimer and upper abdominal pain TECHNIQUE: Multiple CTA images of the chest were obtained after the intravenous administration of [address] abdomen pelvis with IV contrast only was also obtained. Coronal and sagittal MIPS were obtained from the axial data set and were submitted for review. All measurements were obtained according to NASCET criteria. A dose lowering technique was utilized adhering to the principles of ALARA. COMPARISON: CT abdomen and pelvis 01/02/2021 FINDINGS: CTA: The heart is normal in size without pericardial effusion. Moderate coronary artery calcifications. No thoracic aortic aneurysm or dissection. Unremarkable pulmonary artery. No pulmonary emboli. CT CHEST: No thyroid nodule or adenopathy. Trace pleural effusions. No pneumothorax or overt pulmonary edema. Linear subsegmental atelectasis. 10 mm nodular density of the basal left lower lobe on image 64 series 4 is unchanged in comparison. 4 mm solid nodule of the right middle lobe on image 149. Central airways are patent. Soft tissues. No acute fracture. CT ABDOMEN/PELVIS: No pneumatosis or pneumoperitoneum. The spleen is enlarged measuring 15.4 cm in length. Unremarkable pancreas and adrenal glands. Gallbladder wall thickening with pericholecystic fluid and inflammatory stranding. Probable cholelithiasis in the gallbladder neck versus proximal cystic duct. No biliary ductal dilation. Mildly enlarged periportal/pericaval lymph nodes measure up to 1.4 cm. Unremarkable liver. Patent portal vein. Unremarkable kidneys. Prostamegaly. Mild urinary bladder wall thickening with partial distention. Atherosclerosis of the aorta. Prominent nonenlarged retroperitoneal lymph nodes redemonstrated. Small fat filled inguinal hernias. Mild wall thickening of the duodenum with periduodenal stranding. Moderate fecal retention. There is a focus of prior epiploic appendagitis adjacent to the sigmoid colon measuring 1.6 cm. Nonvisualization of the appendix. Tiny fat filled periumbilical hernia, diastases of 1.7 cm. There is no acute fracture. Probable bone island of the proximal right femur. IMPRESSION: 1. Findings compatible with acute cholecystitis with probable gallstone within the gallbladder neck versus proximal cystic duct. 2. Wall thickening of the duodenum is likely reactive. 3. No acute intrathoracic abnormality. 4. No pulmonary emboli. 5. 9 mm nodule of the basal left lower lobe with 4 mm solid nodule of the right middle lobe. 3 month follow-up chest CT recommended. ACT 112: Negative or not required by law. The above report was generated using voice recognition software. It may contain grammatical, syntax or spelling errors. Electronically signed by: Aditya Alvarado M.D. 01/04/2021 8:56 PM Dictated: 01/04/212042Transcribed: 01/04/212042
[2021-01-05] MEDS ORDERED: LIDOCAINE/EPINEPHRINE 1% 20 ML VIAL ONE (08:47)
[2021-01-05] MEDS ORDERED: ROCURONIUM BROMIDE 10 MG/ML 5 ML VIAL IV ONE (09:24)
[2021-01-05] MEDS ORDERED: OPTIRAY 300 IV ONE (10:18)
--- NOTE | 2021-01-05 10:39 | Post Operative Brief Note ---
PG Immediate Post Op with CF Date of Surgery January 05, 2021 Pre & Post Diagnosis Operation Date: 01/05/21 11:30 Pre-Op Diagnosis: Acute Cholecystitis Post-Op Diagnosis: Acute Cholecystitis, Gangrenous I identified the patient and participated in the time-out.: Yes Procedure Operation Date: 01/05/21 11:30 Actual Procedures p Laparoscopic Cholecystectomy with Intraoperative Cholangiogram(Not Applicable) - Gerardo Smith MD, FACS Surgeon Gerardo Smith MD, FACS Nodulizer o Estimated Blood Loss 30 Findings Consistent with Post-Op Diagnosis Specimens Specimen Description: A. Gallbladder Culture #1--Gallbladder, for routine culture and sensitivity, gram stain, aerobes and aerobes Drains Bon-Castellanos Drain (19 Latvian)
--- NOTE | 2021-01-05 10:47 | Hospitalist Consultation ---
Date of Consultation January 05, 2021 Assessment & Plan (1) Cholecystitis: s/p cholecystectomy with no residual stones. Bilirubin elevated and trending down, lipase and ALP normal also suggestive of no residual stones. Continue to monitor CMP for retained stones (2) Metabolic acidosis: With increasing anion gap. No ethanol/methanol intake. Lactate normal. Suspect this is mostly a starvation ketosis likely exacerbated by empagliflozin. Arterial ph 7.33, no indication for Bicarb at present time. Additional Normosol 2L given now He has good respiratory compensation. If not improving will need confirmation with beta-hydroxybutyric acid level for confirmation, D5W and insulin drip but now he is eating and on insulin ketosis should correct itself. (3) Gastroesophageal reflux disease: Switch esomeprazole for pantoprazole per hospital formulary (4) Obesity: (5) Type 2 diabetes mellitus: Hemoglobin A1C 8.0 Dec 16 Hold all home meds Novolog: Goal BSG Range: Low 110 mg/dL, High 140 mg/dL Correction Factor: 20 mg/dL/unit INS:Carbohydrate ratio = 7 g/unit BSGs ACHS if eating, q6h if npo Lantus: If glucose < 140 give 0 units, if glucose >= 140 units give 10 units History of Present Illness Reason for Consultation: DM management Attending Physician: Gerardo Smith MD, [facility] History of Present Illness Santos Alvarado is a 50 year old male admitted to the surgical service due to cholecystitis. The patient was seen post operatively. Doing well after the operation. Mild pain around incision sites, no radiation, not yet eaten when seen but diet order in place. Wakes up easily to voice. Patient was having RUQ for 2 days prior to admission. Febrile overnight. Underwent laparoscopic cholecystectomy today by Dr Simth. Cholangiogram showed no stone in the bile duct. Allergies Allergy/AdvReac Type Severity Reaction Status Date / Time No Known Drug Allergies Allergy Verified 01/04/21 10:47 Home Medications Medication Instructions Recorded Confirmed Type albuterol sulfate 90 mcg/actuation 2 puffs INH Q4H PRN #2 puffs 10/24/18 01/04/21 Rx aerosol inhaler (Ventolin HFA) blood sugar diagnostic (OneTouch #50 ea 12/11/18 01/04/21 Rx Verio test strips) blood sugar diagnostic (OneTouch #10 ea 01/08/19 01/04/21 History Ultra Blue Test Strip) cetirizine 10 mg tablet 10 mg PO HS tab 01/08/19 01/04/21 History lancets 33 gauge (OneTouch Delica #100 ea 01/08/19 01/04/21 History Lancets) glimepiride 2 mg tablet 2 mg PO TID #270 tab 05/21/20 01/04/21 Rx semaglutide 1 mg/dose (2 mg/1.5 1 mg SQ WEEKLY 30 Days #3 ml 05/24/20 01/04/21 Rx mL) subcutaneous pen injector (Ozempic) metformin 1,000 mg tablet 1,000 mg PO BID #60 tab 08/23/20 01/04/21 Rx empagliflozin 25 mg tablet 25 mg PO QAM #30 tab 09/21/20 01/04/21 Rx (Jardiance) amoxicillin 875 mg-potassium 1 tab PO BID 10 Days #20 tab 01/02/21 01/04/21 Rx clavulanate 125 mg tablet (Augmentin) atorvastatin 20 mg tablet 20 mg PO HS 01/02/21 01/04/21 History esomeprazole magnesium 40 mg 40 mg PO DAILY #30 cap 01/04/21 01/04/21 Rx capsule,delayed release hydrocodone 5 mg-acetaminophen 325 1 tab PO Q6H PRN #30 tab 01/04/21 01/04/21 Rx mg tablet Patient History Medical History Abnormal CT scan, colon Allergic rhinitis Asthma, mild intermittent 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 Gastroesophageal reflux disease Hyperlipidemia Malignant lymphoma, Hodgkin's type Obesity Surgical History Hx of appendectomy Family History Father Diabetes Hyperlipidemia Mother Hyperlipidemia Grandfather (Paternal) Colon cancer Social History Smoking Status: Never smoker Tobacco Type: Cigarettes Hx Alcohol Use: Yes Hx Substance Use: No Preferred Language: French Communication Ability: Effective Pta Required: No Beliefs That Will Affect Care: None Current Living Situation: Spouse Feels Safe at Home: Yes Assistive Devices: None Review of Systems Review of Systems: All systems reviewed & are unremarkable except as noted in HPI & below Physical Exam Constitutional: WD/WN, vitals as above Respiratory: normal respiratory effort, lungs clear to auscultation Cardiovascular: RRR, no murmur, no edema Gastrointestinal (Abdomen): Inspection/Auscultation: abdomen normal to inspection and normal bowel sounds; abdomen not distended Percussion/Palpation: + abdomen tender (RUQ pain) and abdomen soft; no guarding and abdomen not rigid Skin: no rashes, warm and dry Neurologic: moves all extremities and awake; not confused Psychiatric: A+Ox3, euthymic affect Results & Data Results & Data ([facility]) Vital Signs (Past 12 Hours) Vital Signs Temp Pulse Pulse Pulse Resp BP Pulse Ox 01/05/21 07:55 37.7 C H 119 H 20 138/86 94 01/05/21 07:35 37.7 C H 120 H 20 115/68 93 01/05/21 06:33 37.6 C H 01/05/21 01:36 37.6 C 01/05/21 00:45 38.2 C H 01/04/21 23:26 36.6 C 109 H 16 149/83 H 97 01/04/21 23:00 106 H 18 143/81 H 99 PG Care Time/CCT Total # of Minutes Spent Total Time Spent with Patient: Total time spent is greater than 50% in coordination of care (as documented) at patient's floor/unit and/or counseling patient: Coding Level of Care Code 68009 Office/OBS Consult Lvl 4 Diagnoses Gastroesophageal reflux disease K21.9 Obesity E66.9 Cholecystitis K81.9 Metabolic acidosis E87.2 Type 2 diabetes mellitus E11.9
--- NOTE | 2021-01-05 10:56 | Operative Report ---
Post Operative Report Pre & Post Diagnosis Operation Date: 01/05/21 11:30 Pre-Op Diagnosis: Acute Cholecystitis Post-Op Diagnosis: Acute Cholecystitis, Gangrenous I identified the patient and participated in the time-out.: Yes Procedure Operation Date: 01/05/21 11:30 Actual Procedures p Laparoscopic Cholecystectomy with Intraoperative Cholangiogram(Not Applicable) - Gerardo Smith MD, FACS The patient was brought into the operating theater general endotracheal anesthesia abdomen was prepped byline solution properly draped timeout was had patient was identified biotics were on board small incision was made approximately 2 inches above the umbilical crater sufficient to place a Veress needle followed by CO2 7 mmHg followed by 5 mm trocar insufflated to approximately 14 patient was placed in left lateral position reverse Trendelenburg direct visualization placed a 5 mm epigastric trocar site and 2 5 mm subcostal trochars with preemptive local analgesic the omentum was strained over the liver as we pulled it away we could see a distended abdomen grayish with patchy necrosis of the gallbladder at this point we elected to drain it as per needle was placed at the fundus some bowel came out which was thick green in nature and we suspended the gallbladder with the lateral port and worked her way up to the neck of the gallbladder where a significant amount inflammation was appreciated most with was pulled away with blunt dissection we identified the structures of the takeoff from the cystic duct and on the gallbladder area the artery was inferior to that which we doubly clipped and divided we clipped the cystic duct at its takeoff made a small opening approximately half an inch from its takeoff and we encountered some biliary based things in the cystic duct almost revolution nature we worked our way and freed all this up we identified that the cystic duct was actually quite long we continued dissecting out to a few points where we tried to place a #4 urethral catheter transversing abdominal wall and a 14 Angiocath in every opening was made in some liquid met with resistance continued down the cystic duct and finally got an area where we were able to milk the last stone in the duct and was able to obtain the we identified still the cystic duct was quite long but there were no filling defects in the common bile duct and free flow into the duodenum at this point we took down the cystic duct more proximally another inch or so well aware the common bile duct we removed the Angiocath and doubly clipped the cystic duct and divided gallbladder very much been able to be elevated by blunt dissection due to significant edema necrosis on the wall were able to free this up from the liver lesions much posterior peritoneum was possible we placed the gallbladder in an Endopouch and taken out intact through the epigastric port fell in pieces we would culture it. At this point the subhepatic suprahepatic area was checked hemostasis as expected oozing but nothing significant we placed the camera right upper quadrant port visualize the umbilical we could identify the hernia that we have suspected clinically which is about going this but we will well above that with her trocar individual trochars removed under direct visualization last the umbilical trocar prior to removing the trochars I elected to drain the subhep atic area which was predicted with a 19 Leonel drain was brought out medially and taken out through the lateral port site attached to the skin edge with 2-0 silk and this was placed subhepatic drain in the Morison's pouch once individual trochars removed wounds were closed with 4-0 Monocryl Steri-Strips applied procedure was tolerated well by the patient estimate blood loss approximately 30 cc Addendum spoke with his Carolyn at [phone] Surgeon Gerardo Smith MD, FACS Applications Development Analyst o Estimated Blood Loss 30 Findings Consistent with Post-Op Diagnosis Acute gangrenous cholelithiasis and cholecystitis Specimens Gallbladder and contents Drains 19 Leonel subhepatic through the right upper quadrant trocar site Description of Procedure merda I attest to the content of the Intraoperative Record and any orders documented therein. Any exceptions are noted below.
[2021-01-05] MEDS: LACTATED RINGER'S 1,000 ML IV SCH ×2 (11:06→22:33)
[2021-01-05] MEDS: HYDROmorphone INJ 1 MG/ML SYRINGE IV PRN ×4 (11:14→11:30)
[2021-01-05] MEDS ORDERED: METOPROLOL TARTRATE 1 MG/ML VIAL IV STA (11:51)
--- NOTE | 2021-01-05 11:52 | Fluoroscopy Report ---
[place] cholangiogram OR HISTORY: 50 years-old Male LAP BETSY acute cholecystitis COMPARISON: CT abdomen and pelvis 01/04/2021 TECHNIQUE: 6 spot fluoroscopic images of the abdomen were obtained utilizing 8.6 seconds fluoroscopy time FINDINGS: Intraoperative cholangiogram images were submitted. Cholecystectomy clips are noted. Cannulation of t he cystic duct is noted with contrast injection. No intrahepatic or extrahepatic biliary ductal dilat ion. Contrast opacified pancreatic duct. No biliary filling defects identified to suggest choledochol ithiasis. No biliary strictures. Contrast is noted within the duodenum. IMPRESSION: Fluoroscopic assistance as above. ACT 112: Negative or not required by law. The above report was generated using voice recognition software. It may contain grammatical, syntax o r spelling errors. Electronically signed by: Aditya Alvarado M.D. 01/05/2021 11:51 AM
[2021-01-05] MEDS ORDERED: METOPROLOL TARTRATE 1 MG/ML VIAL IV ONE (11:53)
--- NOTE | 2021-01-05 11:53 | Anesthesiology Progress Note ---
Date of Service January 05, 2021 Anesthesia Post Procedure Vital Signs Vital Signs: Temp Pulse Pulse Pulse Pulse Resp BP 01/05/21 11:40 36.8 C 107 H 17 01/05/21 11:32 100 H 17 01/05/21 11:20 102 H 17 01/05/21 11:10 109 H 20 01/05/21 11:00 105 H 20 01/05/21 10:51 37.5 C 115 H 20 01/05/21 07:55 37.7 C H 119 H 20 01/05/21 07:35 37.7 C H 120 H 20 01/05/21 06:33 37.6 C H 01/05/21 01:36 37.6 C 01/05/21 00:45 38.2 C H 01/04/21 23:26 36.6 C 109 H 16 01/04/21 23:00 106 H 18 01/04/21 22:33 36.8 C 106 H 21 01/04/21 21:38 98 H 16 01/04/21 19:22 36.0 C L 108 H 20 112/70 BP Pulse Ox 01/05/21 11:40 138/81 96 01/05/21 11:32 151/86 H 93 01/05/21 11:20 142/84 H 94 01/05/21 11:10 137/83 95 01/05/21 11:00 133/81 97 01/05/21 10:51 145/76 H 94 01/05/21 07:55 138/86 94 01/05/21 07:35 115/68 93 01/05/21 06:33 01/05/21 01:36 01/05/21 00:45 01/04/21 23:26 149/83 H 97 01/04/21 23:00 143/81 H 99 01/04/21 22:33 139/77 96 01/04/21 21:38 129/81 98 01/04/21 19:22 98 Pain Intensity Abdomen: Pain Intensity: 2 Transfer of Care Handoff Completed per policy Notes Mental Status: alert / awake / arousable Patient Amnestic to Procedure: Yes Nausea / Vomiting: adequately controlled Pain: adequately controlled Airway Patency, RR, SpO2: stable & adequate BP & HR: stable & adequate Hydration State: stable & adequate Anesthetic Complications: no major complications apparent and Pt Satisfied with anesthetic care Notes: The patient is awake and comfortable. He is slightly tachycardic which he was preoperatively and will receive a dose of metoprolol. All of his other vital signs are stable.
[2021-01-05 13:12] LABS: Basophils # (auto) 0.03 K/uL (0-0.2); Basophils % (auto) 0.3 %; Eosinophils # (auto) 0.01 K/uL (0-0.5); Eosinophils % (auto) 0.1 %; Hematocrit (blood only) 40.8 % (42-52); Hemoglobin 13.8 g/dL (14.0-18.0); Immature Granulocytes # (auto) 0.08 K/uL (0.00-0.02); Immature Granulocytes % (auto) 0.7 %; Lymphocytes % (auto) 3.4 %; Mean Corpuscular Hemoglobin 30.1 pg (25-34); Mean Corpuscular Hgb Conc 33.8 g/dL (32-36); Mean Corpuscular Volume 89.1 fL (80-100); Mean Platelet Volume 10.1 fL (7.4-10.4); Monocytes # (auto) 0.93 K/uL (0.11-0.59); Monocytes % (auto) 7.8 %; Neutrophils # (auto) 10.46 K/uL (1.4-6.5); Neutrophils % (auto) 87.7 %; Platelet Count 234 K/uL (130-400); RDW Coefficient of Variation 13.7 % (11.5-14.5); RDW Standard Deviation 44.9 fL (36.4-46.3); Red Blood Count 4.58 M/uL (4.7-6.1); White Blood Count 11.91 K/uL (4.8-10.8)
[2021-01-05 13:39] LABS: BUN Creatinine Ratio 19.6 (10-20); Calcium 8.7 mg/dl (8.5-10.1); Creatinine Clr Calc Pharmacy 129.1 ml/min; Est GFR (African American) 116.1 ml/min; Est GFR (Non-African American) 100.2 ml/min; Potassium 4.1 mmol/L (3.5-5.1)
[2021-01-05] MEDS ORDERED: NORMOSOL-R 1,000 ML IV STA (15:20)
[2021-01-05 16:12] LABS: Base Excess ABG -10.7 mEq/L (-9-1.8); HCO3 ABG 13 mmol/L (19-24); Oxygen Saturation ABG 95.9 % (90-95); PCO2 ABG 26 mmHg (35-46); PO2 ABG 79 mmHg (80-95); pH ABG 7.33 (7.35-7.45)
[2021-01-05 16:13] LABS: Allen Test Pos (Pos)
[2021-01-05] MEDS ORDERED: NORMOSOL-R 1,000 ML IV ONE (17:07)
[2021-01-05] MEDS ORDERED: ACETAMINOPHEN 325 MG TAB PO PRN (18:51)
[2021-01-05] MEDS: HYDROmorphone INJ 0.5 MG/0.5 ML SYR IV PRN ×2 (19:34→22:36)
[2021-01-05 20:57] LABS: BUN Creatinine Ratio 14.3 (10-20); Calcium 8.4 mg/dl (8.5-10.1); Creatinine Clr Calc Pharmacy 108.2 ml/min; Est GFR (African American) 95.5 ml/min; Est GFR (Non-African American) 82.4 ml/min
[2021-01-05 20:58] LABS: Beta-Hydroxybutyrate 27.57 mg/dl (0.2-2.81)
[2021-01-05] MEDS ORDERED: ATORVASTATIN 20 MG TAB PO SCH (21:00)
[2021-01-05] MEDS ORDERED: CETIRIZINE HCL 10 MG TABLET PO SCH (21:00)
[2021-01-05] MEDS: INSULIN GLARGINE SOLOSTAR 100 UNITS/ML 3 ML PEN SC SCH (22:34)
[2021-01-06] MEDS: PIPERACILLIN/TAZOBACTAM 3.375 GM in DEXTROSE 5% 100 ML IV SCH ×2 (01:59→10:27)
--- NOTE | 2021-01-06 05:35 | Electrocardiogram Report ---
Test Reason : Blood Pressure : / mmHG Vent. Rate : 101 BPM Atrial Rate : 101 BPM P-R Int : 150 ms QRS Dur : 094 ms QT Int : 356 ms P-R-T Axes : 068 -30 006 degrees QTc Int : 461 ms Sinus tachycardia Left axis deviation Nonspecific T wave abnormality Abnormal ECG When compared with ECG of 02-JAN-2021 08:44, Nonspecific T wave abnormality is now Present Confirmed by Dereje Mandel ([id number]) on 01/06/2021 5:34:48 AM Referred By: Sandro Rosen Confirmed By:Dereje Mandel
--- NOTE | 2021-01-06 07:36 | Surgery Progress Note ---
Date of Service January 06, 2021 Assessment & Plan (1) Cholecystitis: Plan: Patient will be admitted to the hospital and the surgical service and we proceed as follows: Provide analgesics Provide antiemetics Continue antibiotics in the form of Zosyn Keep n.p.o. IV fluid for hydration We will plan on proceeding with a laparoscopic cholecystectomy with probable intraoperative cholangiogram tomorrow. Dr. Smith will further discuss the surgery with the patient We will use SCDs for DVT prevention no chemical means due to planned surgery We will place patient on sliding scale insulin and follow BSG's every 6 hours while n.p.o. We will also asked the hospitalist to help assist with his diabetes management. Patient be a level 1 full code Plan: 01/06/21 Patient is first postoperative day status post lap kathie cholangiogram Operative findings were discussed with the patient From my point of view the patient can be discharged today if okay with the medical service We will leave the drain in and asked the patient to return to our office on Sunday we would be moving to the [employer] science building in front of the hospital and this was discussed with the patient Should not drive until then do not lift anything heavier than 10 pounds he may shower And we will send him home on 5 days of p.o. antibiotics We will proceed with laparoscopic cholecystectomy cholangiogram We will provide with SCD preoperatively Liver enzymes were reevaluated this morning Vitals noted with elevated temperature and elevated heart rate Again the procedure was explained to the patient has laparoscopic cholecystectomy cholangiogram possible open the permit was signed Admission and Anticipated Discharge Date Admission Date: January 04, 2021 Subjective Overall feels much better than yesterday morning had a fairly good night with minimal abdominal discomfort Physical Exam Physical Exam: Alert coherent sitting at the side of the bed in no acute distress Sclera icteric Trocar sites free of any ecchymosis Leonel drainage serous slightly sanguinous nonbilious Results & Data ([facility]) Vital Signs (Past 12 Hours) Vital Signs Temp Pulse Resp BP Pulse Ox 01/06/21 07:23 36.7 C 90 18 162/94 H 95 01/05/21 23:19 37 C 99 H 16 135/80 94 PG Care Time/CCT Total # of Minutes Spent Total Time Spent with Patient: Total time spent is greater than 50% in coordi nation of care (as documented) at patient's floor/unit and/or counseling patient: Coding Level of Care Code None Diagnoses Cholecystitis K81.9
[2021-01-06 08:22] LABS: Basophils # (auto) 0.03 K/uL (0-0.2); Basophils % (auto) 0.5 %; Eosinophils % (auto) 4.6 %; Hematocrit (blood only) 39.5 % (42-52); Hemoglobin 13.2 g/dL (14.0-18.0); Immature Granulocytes # (auto) 0.04 K/uL (0.00-0.02); Immature Granulocytes % (auto) 0.6 %; Lymphocytes # (auto) 0.85 K/uL (1.2-3.4); Mean Corpuscular Hemoglobin 29.3 pg (25-34); Mean Corpuscular Hgb Conc 33.4 g/dL (32-36); Mean Corpuscular Volume 87.8 fL (80-100); Mean Platelet Volume 9.7 fL (7.4-10.4); Monocytes # (auto) 0.61 K/uL (0.11-0.59); Monocytes % (auto) 9.3 %; Neutrophils # (auto) 4.72 K/uL (1.4-6.5); Platelet Count 253 K/uL (130-400); RDW Coefficient of Variation 13.8 % (11.5-14.5); RDW Standard Deviation 44.5 fL (36.4-46.3); White Blood Count 6.55 K/uL (4.8-10.8)
[2021-01-06] MEDS: PANTOprazole 40 MG TAB PO SCH (09:11)
[2021-01-06] MEDS: INSULIN ASPART 100 UNITS/ML 3 ML PEN SC SCH (09:12)
[2021-01-06] MEDS: INSULIN GLARGINE SOLOSTAR 100 UNITS/ML 3 ML PEN SC SCH (09:13)
[2021-01-06 09:59] LABS: Albumin Globulin Ratio 0.6 (0.9-2); Albumin Level 2.6 gm/dl (3.4-5.0); BUN Creatinine Ratio 16.1 (10-20); Bilirubin,Total 1.4 mg/dl (0.2-1); Calcium 8.9 mg/dl (8.5-10.1); Creatinine Clr Calc Pharmacy 147.5 ml/min; Est GFR (African American) 122.6 ml/min; Est GFR (Non-African American) 105.8 ml/min; Globulin 4.6 gm/dl (2.5-4.0); Potassium 3.8 mmol/L (3.5-5.1); Total Protein 7.2 gm/dl (6.4-8.2)
--- NOTE | 2021-01-06 10:49 | Hospitalist Progress Note ---
Date of Service January 06, 2021 Assessment & Plan (1) Cholecystitis: Plan: s/p cholecystectomy with no residual stones. Bilirubin improving. Stable for discharge from medical perspective. (2) Metabolic acidosis: Plan: Ketoacidosis. Suspect due to starvatation and Jardiance use. This medication will be discontinued on discharge. Only resume on advice of his PCP but he is at risk of ketoacidosis in the future if this is restarted. Glimepiride can be restarted today if glucose levels > 200 or tomorrow if diet returns to normal. These intructions were explained to the patient. (3) Gastroesophageal reflux disease: Plan: Switch esomeprazole for pantoprazole per hospital formulary (4) Obesity: (5) Type 2 diabetes mellitus: Admission and Anticipated Discharge Date Admission Date: January 04, 2021 Subjective Mild pain over surgical incision but otherwise doing well. Passing gas but no BM since Sunday. Review of Systems Review of Systems: All systems reviewed & are unremarkable except as noted in HPI & below Physical Exam Constitutional: WD/WN, vitals as above Respiratory: normal respiratory effort, lungs clear to auscultation Cardiovascular: RRR, no murmur, no edema Gastrointestinal (Abdomen): Inspection/Auscultation: abdomen normal to inspection and normal bowel sounds; abdomen not distended Percussion/Palp ation: + abdomen tender (RUQ pain) and abdomen soft; no guarding and abdomen not rigid Skin: no rashes, warm and dry Neurologic: moves all extremities and awake; not confused Psychiatric: A+Ox3, euthymic affect Results & Data Results & Data ([facility]) Vital Signs (Past 12 Hours) Vital Signs Temp Pulse Resp BP Pulse Ox 01/06/21 07:23 36.7 C 90 18 162/94 H 95 01/05/21 23:19 37 C 99 H 16 135/80 94 PG Care Time/CCT Total # of Minutes Spent Total Time Spent with Patient: Total time spent is greater than 50% in coordination of care (as documented) at patient's floor/unit and/or counseling patient: Coding Level of Care Code 18060 Subseq Obs Care Lvl 2 Diagnoses Cholecystitis K81.9 Metabolic acidosis E87.2 Gastroesophageal reflux disease K21.9 Obesity E66.9 Type 2 diabetes mellitus E11.9
--- NOTE | 2021-01-24 07:56 | Discharge Summary ---
Date of Service January 24, 2021 Admission HPI Per Admitting Provider This is a 50-year-old male who presented to the emergency department tonight secondary to ongoing abdominal pain. Patient was seen in the emergency department on 01/02/2021. On this date the patient underwent a CT scan abdomen and pelvis that showed some inflammation around the sigmoid colon. The patient was discharged home on oral Augmentin due to concerns for developing diverticulitis. Patient notes he was initially doing well at home but he continues to have right upper quadrant abdominal pain that seems to be worse after he eats. He has had chills as well as fevers as high as 101 as well. He denies any other modifying factors to his pain he notes the pain does not radiate. Patient said he saw his primary care physician earlier today where patient had blood work and he was noted to have an elevated D-dimer. Because of this and his ongoing symptoms he represented to the emergency department. Today in the emergency department the patient underwent a CT scan of the chest that was negative for pulmonary emboli. He had a CT scan of the abdomen and pelvis which showed findings compatible with a acute cholecystitis with probable gallstones in the gallbladder neck. Labs include a CBC her white blood cell count was elevated 12.8. His hemoglobin and hematocrit were both normal. Platelet count was noted to be normal. His sodium was noted to be 134. Potassium, BUN, and creatinine were all normal. Patient had LFTs performed where his bilirubin is elevated at 3.1. His transaminases and alkaline phosphatase as well as his lipase were normal. A Covid test was performed and was noted to be negative. In addition the patient had an EKG that showed no signs of acute ischemic changes. I did question the patient on his activities daily living. The patient says that he walks in excess of 1 mile 6 days/week. He says with his ambulation he walks on flat surfaces and inclines and he does not get chest pain or shortness of breath with these activities. At the time of interview the patient was resting comfortably in bed he was in no distress. Principal Diagnosis acute cholecystitis Discharge Data Allergies Allergy/AdvReac Type Severity Reaction Status Date / Time No Known Drug Allergies Allergy Verified 01/13/21 11:59 Consultations 01/04/21 21:29 Consult General Surgery Stat 01/04/21 21:40 ED Decision to Admit Stat 01/04/21 21:56 Consult Hospitalist Stat Procedures Performed Operation Date: 01/05/21 11:30 Actual Procedures p Laparoscopic Cholecystectomy with Intraoperative Cholangiogram(Not Applicable) - Gerardo Smith MD, FACS Ordered Studies 01/04/21 19:45 CT abd pelvis IV con only Stat CT angio chest PE protocol Stat 01/05/21 07:00 [place] cholangiogram OR Routine Total Time Total Time Spent Total Time Spent (In Minutes): 30 Discharge Plan Discharge Items Patient Disposition: Home - Self-Care Reason For Visit: BETSY Discharge Diagnosis: s/p cholecystectomy Activity: Per Instructions section Lifting: No more than 10 pounds Lifting Comment: for one week Bathing Comment: may shower Sexual Activity: When tolerated Exercise/Sports: Wait until after follow-up appointment Non-emergency contact: Primary Care Provider and Surgeon Call non-emergency contact if: your pain is not controlled, you have a fever and your temperature is above 101 Follow-up/Referrals: Sandro Rosen MD [Primary Care Provider] - 01/13/21 11:30 am Diet: Carb Count or DM1 Addtl Attending Provider Instructions: call [phone] for f/u appointment next sunday Addtl Hacksaw Inspector Provider Instructions: Medicine consult: Metabolic starvation ketoacidosis present exacerbated by Jardiance. Recommend discontinuing this medication and only restarting on advice of your primary care provider. Hold restarting glimepiride given current glucose levels until your glucose levels are > 200 or diet returns to normal. Pending Studies at Discharge: No Stand-Alone Forms: [facility] [employer], Smoking Cessation Medications and DC Order Prescriptions: Continued albuterol sulfate [Ventolin HFA] 90 mcg/actuation HFA aerosol inhaler 2 puffs INH Q4H PRN (Reason: shortness of breath or wheezing) Qty: 2 RF: 3 (DME) OneTouch Verio test strips strip See Dose Instructions .ROUTE .MEDSUPPLY Qty: 50 RF: 3 Ozempic 1 mg/dose (2 mg/1.5 mL) pen injector 1 mg SQ WEEKLY 30 Days Qty: 3 RF: 11 metformin 1,000 mg tablet 1,000 mg PO BID Qty: 60 RF: 5 esomeprazole magnesium 40 mg capsule,delayed release(DR/EC) 40 mg PO DAILY Qty: 30 RF: 2 (DME) lancets [OneTouch Delica Lancets] 33 gauge misc See Dose Instructions .ROUTE .MEDSUPPLY Qty: 100 RF: 0 cetirizine 10 mg tablet 10 mg PO HS RF: 0 glimepiride 2 mg tablet 2 mg PO TID Qty: 270 RF: 3 atorvastatin 20 mg tablet 20 mg PO HS RF: 0 Discontinued Jardiance 25 mg tablet 25 mg PO QAM Qty: 30 RF: 5 No Action (DME) OneTouch Ultra Blue Test Strip strip See Dose Instructions .ROUTE .MEDSUPPLY Qty: 10 RF: 0 Discharge Orders: Discharge Order (Routine); Ordered 01/06/21 Ordered By: Gerardo Smith Admission Data Admit Date/Time: 01/04/21 21:56 Attending Provider: Gerardo Smith Admit Provider: Gerardo Smith Primary Care Provider: Sandro Rosen Other Providers: William Devine ; Gerardo Smith ; Dick Tian ; Amanda Vaz ; Paulo Christian ; Edmundo Núñez ; Justyn Cerna ; Olegario Rivera ; Major Alejandra ; Sandro George ; Micki Sage ; Mary Ellen Moraes ; Tong Bill ; Inocencia Lovett ; Elin Cantor ; Brandt Gilbert ; Jose Angel Weiss ; Eliud Lora ; Amanda Stafford ; Tom Dumas ; Annette Martin ; Theo Gray ; Paulo Hyde ; Luis M Thomas ; Kathya Lorenzo ; Phil Taylor ; Inocencia Corbett ; Juarez Damon ; Jeffrey Cruz ; Alfredo Amaya Other Interventions: Discharge Summary Assessment (RN) Last Done: 01/06/21 11:26 Coding Level of Care Code 49589 OBS Care - Discharge
== END 2021-01-06 13:54 | disposition home or self-care (01) ==
LOC: ED 19:19 → 2W 19:19